=== PATIENT | female | born 1985 | race Caucasian/White ===

== ENCOUNTER 2016-10-11 20:42 | Inpatient (IN) | payer OTHER ==
[2016-10-11 21:14] VITALS: BMI 28.3
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
[2016-10-11] MEDS ORDERED: chlordiazePOXIDE HCL 25 MG CAPSULE PO PRN (22:11)
[2016-10-11] MEDS ORDERED: P-EPHED 60MG/TRIPROLIDI 2.5MG TABLET PO PRN (22:11)
[2016-10-11] MEDS ORDERED: diphenhydrAMINE HCL 50 MG CAPSULE PO PRN (22:11)
[2016-10-11] MEDS ORDERED: MAGNESIUM HYDROX 2400MG/30ML ORAL SUSPENSION 30 ML CUP PO PRN (22:11)
[2016-10-11] MEDS ORDERED: ACETAMINOPHEN 325 MG TABLET (FP) PO PRN (22:11)
[2016-10-11] MEDS ORDERED: MAG HYDROX/AL HYDROX/SIMETH 30 ML UNIT-DOSE CUP PO PRN (22:11)
[2016-10-11] MEDS ORDERED: guaiFENesin/D-METHORPHAN HB 10 ML UNIT-DOSE CUPS PO PRN (22:11)
[2016-10-11] MEDS ORDERED: MAGNESIUM CITRATE 300 ML BOTTLE PO PRN (22:11)
[2016-10-11] MEDS ORDERED: hydrOXYzine PAMOATE 50 MG CAPSULE (FP) PO PRN (22:11)
[2016-10-11] MEDS ORDERED: IBUPROFEN 400 MG TABLET (FP) PO PRN (22:11)
[2016-10-11] MEDS ORDERED: MENTHOL/PHENOL 1 EACH UD MM PRN (22:11)
[2016-10-11] MEDS ORDERED: LOPERAMIDE HCL 2 MG CAPSULE PO PRN (22:11)
[2016-10-11] MEDS: chlordiazePOXIDE HCL 25 MG CAPSULE PO SCH (23:20)
[2016-10-12 01:45] LABS: URINE APPEARANCE CLEAR; URINE BILIRUBIN NEGATIVE (NEGATIVE); URINE BLOOD NEGATIVE (NEGATIVE); URINE COLOR DKYELLOW; URINE GLUCOSE (UA) NEGATIVE (NEGATIVE); URINE KETONE NEGATIVE (NEGATIVE); URINE NITRITE NEGATIVE (NEGATIVE); URINE UROBILINOGEN 4.0 E.U/dl mg/dL (0.2-1.0)
[2016-10-12 01:48] LABS: URINE LEUK ESTERASE 2+ (NEGATIVE); URINE PROTEIN 1+ (NEGATIVE)
[2016-10-12 02:02] LABS: URINE HYALINE CAST 3 /lpf; URINE MUCUS MANY; URINE RBC 1 /hpf (0-3); URINE WBC 5 /hpf (3-5)
[2016-10-12] MEDS: chlordiazePOXIDE HCL 25 MG CAPSULE PO SCH ×4 (05:51→22:35)
[2016-10-12 10:42] LABS: MCH 28.9 pg (25.7-33.7); MCHC 32.9 g/dl (32.0-36.0); MEAN PLT VOLUME 9.4 fl (7.5-11.1); PLATELET COUNT 229 K/MM3 (134-434); RDW 14.9 % (11.6-15.6); WHITE BLOOD COUNT 7.2 K/mm3 (4.0-10.0)
[2016-10-12 10:47] LABS: ALBUMIN 3.4 g/dl (3.4-5.0); BILIRUBIN,TOTAL 0.3 mg/dL (0.2-1.0); GLUCOSE,RANDOM 80 mg/dL (74-106); SGOT/AST 19 U/L (15-37); TOT PROT 6.6 g/dl (6.4-8.2)
[2016-10-12 10:49] LABS: ALK PHOS 66 U/L (45-117); ANION GAP 5 (8-16); CALCIUM 9.3 mg/dL (8.5-10.1); CO2 27 mmol/L (21-32); CREATININE 0.8 mg/dL (0.55-1.02); SGPT/ALT 19 U/L (12-78)
[2016-10-12] MEDS: PRENATAL VITAMINS W/ FOLIC ACID TABLET (FP) PO SCH (10:52)
[2016-10-12] MEDS: NICOTINE 21 MG/24 HOURS TOPICAL PATCH TD SCH (10:53)
--- NOTE | 2016-10-12 12:29 | PN ---
S CIWA - CIWA Score Nausea/Vomitin-Mild Nausea/No Vomiting Muscle Tremors: 4-Moderate,w/Arms Extend Anxiety: 4-Mod. Anxious/Guarded Agitation: 4-Moderately Restless Paroxysmal Sweats: 3 Orientation: 0-Oriented Tacttile Disturbances: 0-None Auditory Disturbances: 0-None Visual Disturbances: 0-None Headache: 0-None Present CIWA-Ar Total Score: 16 BHS Progress Note (SOAP) Subjective: Anxiety,tremors,sweating,interrupted sleep,restless Objective: 10/12/16 12:28 Vital Signs - 8 hr 10/12/16 10/12/16 06:00 10:02 Temperature 98.1 F 97.9 F Pulse Rate 57 L 84 Respiratory 16 18 Rate Blood Pressure 111/64 119/73 Laboratory Tests 10/11/16 10/12/16 10/12/16 22:50 08:00 08:00 WBC 7.2 RBC 4.46 Hgb 12.9 Hct 39.3 MCV 88.0 MCH 28.9 MCHC 32.9 RDW 14.9 Plt Count 229 MPV 9.4 Sodium 138 Potassium 4.2 Chloride 106 Carbon Dioxide 27 Anion Gap 5 L BUN 17 Creatinine 0.8 Creat Clearance w eGFR > 60 Random Glucose 80 D Calcium 9.3 Total Bilirubin 0.3 D AST 19 D ALT 19 Alkaline Phosphatase 66 Total Protein 6.6 Albumin 3.4 Urine Color Dkyellow Urine Appearance Clear Urine pH 5.0 Ur Specific [place] 1.025 Urine Protein 1+ H Urine Glucose (UA) Negative Urine Ketones Negative Urine Blood Negative Urine Nitrite Negative Urine Bilirubin Negative Urine Urobilinogen 4.0 e.u/dl H Ur Leukocyte Esterase 2+ H D Urine RBC 1 Urine WBC 5 Ur Epithelial Cells Rare Hyaline Casts 3 Urine Mucus Many labs noted Assessment: 10/12/16 12:29 Withdrawal sx. Plan: Continue detox
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
[2016-10-12] MEDS ORDERED: THIAMINE HCL 100 MG TABLET (FP) PO SCH (22:00)
[2016-10-12] MEDS ORDERED: ARIPiprazole 5 MG TABLET (FP) PO SCH (22:00)
[2016-10-13] MEDS: chlordiazePOXIDE HCL 25 MG CAPSULE PO SCH ×2 (05:40→10:38)
[2016-10-13] MEDS: NICOTINE 21 MG/24 HOURS TOPICAL PATCH TD SCH (10:38)
[2016-10-13] MEDS: PRENATAL VITAMINS W/ FOLIC ACID TABLET (FP) PO SCH (10:38)
[2016-10-13] MEDS ORDERED: ALBUTEROL SO4 6.7 GM HFA INHALER IH PRN (11:16)
--- NOTE | 2016-10-13 11:28 | PN ---
[facility] CIWA - CIWA Score Nausea/Vomitin-No Nausea/No Vomiting Muscle Tremors: 3 Anxiety: 4-Mod. Anxious/Guarded Agitation: 3 Paroxysmal Sweats: 3 Orientation: 0-Oriented Tacttile Disturbances: 0-None Auditory Disturbances: 0-None Visual Disturbances: 0-None Headache: 0-None Present CIWA-Ar Total Score: 13 S Progress Note (SOAP) Subjective: Anxiety,tremors,sweating,interrupted sleep,restless. Objective: 10/13/16 11:27 Vital Signs - 8 hr 10/13/16 10/13/16 03:30 06:00 Temperature 98.1 F Pulse Rate 64 Respiratory 18 16 Rate Blood Pressure 128/62 Laboratory Last Values WBC 7.2 K/mm3 (4.0-10.0) 10/12/16 08:00 RBC 4.46 M/mm3 (3.60-5.2) 10/12/16 08:00 Hgb 12.9 GM/dL (10.7-15.3) 10/12/16 08:00 Hct 39.3 % (32.4-45.2) 10/12/16 08:00 MCV 88.0 fl (80-96) 10/12/16 08:00 MCH 28.9 pg (25.7-33.7) 10/12/16 08:00 MCHC 32.9 g/dl (32.0-36.0) 10/12/16 08:00 RDW 14.9 % (11.6-15.6) 10/12/16 08:00 Plt Count 229 K/MM3 (134-434) 10/12/16 08:00 MPV 9.4 fl (7.5-11.1) 10/12/16 08:00 Sodium 138 mmol/L (136-145) 10/12/16 08:00 Potassium 4.2 mmol/L (3.5-5.1) 10/12/16 08:00 Chloride 106 mmol/L (98-107) 10/12/16 08:00 Carbon Dioxide 27 mmol/L (21-32) 10/12/16 08:00 Anion Gap 5 (8-16) L 10/12/16 08:00 BUN 17 mg/dL (7-18) 10/12/16 08:00 Creatinine 0.8 mg/dL (0.55-1.02) 10/12/16 08:00 Creat Clearance w eGFR > 60 (>60) 10/12/16 08:00 Random Glucose 80 mg/dL (74-106) D 10/12/16 08:00 Calcium 9.3 mg/dL (8.5-10.1) 10/12/16 08:00 Total Bilirubin 0.3 mg/dL (0.2-1.0) D 10/12/16 08:00 AST 19 U/L (15-37) D 10/12/16 08:00 ALT 19 U/L (12-78) 10/12/16 08:00 Alkaline Phosphatase 66 U/L (45-117) 10/12/16 08:00 Total Protein 6.6 g/dl (6.4-8.2) 10/12/16 08:00 Albumin 3.4 g/dl (3.4-5.0) 10/12/16 08:00 Urine Color Dkyellow 10/11/16 22:50 Urine Appearance Clear 10/11/16 22:50 Urine pH 5.0 (5.0-8.0) 10/11/16 22:50 Ur Specific [place] 1.025 (1.005-1.025) 10/11/16 22:50 Urine Protein 1+ (NEGATIVE) H 10/11/16 22:50 Urine Glucose (UA) Negative (NEGATIVE) 10/11/16 22:50 Urine Ketones Negative (NEGATIVE) 10/11/16 22:50 Urine Blood Negative (NEGATIVE) 10/11/16 22:50 Urine Nitrite Negative (NEGATIVE) 10/11/16 22:50 Urine Bilirubin Negative (NEGATIVE) 10/11/16 22:50 Urine Urobilinogen 4.0 e.u/dl mg/dL (0.2-1.0) H 10/11/16 22:50 Ur Leukocyte Esterase 2+ (NEGATIVE) H D 10/11/16 22:50 Urine RBC 1 /hpf (0-3) 10/11/16 22:50 Urine WBC 5 /hpf (3-5) 10/11/16 22:50 Ur Epithelial Cells Rare /hpf (FEW) 10/11/16 22:50 Hyaline Casts 3 /lpf 10/11/16 22:50 Urine Mucus Many 10/11/16 22:50 RPR Titer Nonreactive (NONREACTIVE) 10/12/16 08:00 labs noted Assessment: 10/13/16 11:27 Withdrawal sx. Plan: Continue detox
[2016-10-13 11:35] VITALS: BP 122/75; PULSE 69; TEMP 97.7
[2016-10-13] MEDS ORDERED: chlordiazePOXIDE 5 MG CAPSULE PO SCH (23:00)
--- NOTE | 2016-10-14 09:59 | EKG ---
Test Reason : Blood Pressure : / mmHG Vent. Rate : 064 BPM Atrial Rate : 064 BPM P-R Int : 134 ms QRS Dur : 080 ms QT Int : 428 ms P-R-T Axes : 047 -05 012 degrees QTc Int : 441 ms NORMAL SINUS RHYTHM WITH SINUS ARRHYTHMIA NORMAL ECG NO PREVIOUS ECGS AVAILABLE Confirmed by CHARISSE GUTIERREZ MD ([id number]) on 10/14/2016 9:58:56 AM Referred By: Confirmed By:CHARISSE GUTIERREZ MD
[2016-10-14] MEDS ORDERED: chlordiazePOXIDE HCL 10 MG CAPSULE PO SCH (23:00)
== END 2016-10-13 13:06 | disposition left against medical advice (07) | DRG 770 ==
LOC: YASAS 20:42 → Y6N 21:13
PROVIDERS: ADMIT Internal Medicine; ATTEND Surgery
PROC: HZ2ZZZZ Detoxification Services for Substance Abuse Treatment (ICD-10-PCS; principal; 2016-10-13)
DX: F10.230 Alcohol dependence with withdrawal, uncomplicated (principal); F14.20 Cocaine dependence, uncomplicated; F31.9 Bipolar disorder, unspecified; F43.10 Post-traumatic stress disorder, unspecified; J45.909 Unspecified asthma, uncomplicated; Z21 Asymptomatic human immunodeficiency virus [HIV] infection status; Z86.69 Personal history of other diseases of the nervous system and sense organs; Z91.5 Personal history of self-harm; Z87.828 Personal history of other (healed) physical injury and trauma
CPT/HCPCS: 36415; 80053; 81003; 81015; 85027; 86593; 93005; 93010